=== PATIENT | male | born 1955 | race Caucasian/White ===

== ENCOUNTER 2025-06-18 10:24 | Day surgery (SDC) | payer MEDICARE ==
[2025-06-18] MEDS ORDERED: BUPIVACAINE 0.5% VIAL IJ ONE (10:25)
[2025-06-18] MEDS ORDERED: methylPREDNISolone acetate IM ONE (10:25)
[2025-06-18] MEDS ORDERED: propofoL IV ONE (12:21)
[2025-06-18] MEDS ORDERED: DEXMEDETOMIDINE 80 MCG/20ML-NS IV ONE (12:22)
[2025-06-18] MEDS ORDERED: Lactated Ringers 1,000 ML IV ONE (13:38)
--- NOTE | 2025-06-18 13:46 | XRAY ---
Indication: Right T3-T5 intercostal nerve block. Intraoperative fluoroscopy provided for 19 seconds. 3 digital spot images obtained supine submitted for interpretation demonstrates needle tips projecting lateral unknown ribs. Correlate with intraoperative findings/report.
--- NOTE | 2025-06-18 13:48 | XRAY ---
19 seconds of fluoroscopy was used in surgery for a right intercostal nerve block at level T3-T5.
== END 2025-06-18 12:50 | disposition home or self-care (01) ==
LOC: SDC-PAIN 10:24
PROVIDERS: ATTEND Psychiatry & Neurology Pain Medicine
DX: R07.81 Pleurodynia (principal); E11.9 Type 2 diabetes mellitus without complications; G58.8 Other specified mononeuropathies